=== PATIENT | female | born 1960 | race Caucasian/White ===

== ENCOUNTER 2018-09-25 06:07 | Day surgery (SDC) | payer OTHER ==
[2018-09-22 11:02] LABS: Absolute Lymphocytes (CBC) 1.6 K/uL (0.7-4.9); Absolute Monocytes 0.6 K/uL (0.1-1.3); Absolute Neutrophil 3.7 K/uL (1.8-8.0); Basophils % 0.4 % (0-1.3); Eosinophils % 2.3 % (0-4.4); Hematocrit 43.6 % (36.0-45.0); Lymphocytes % 25.7 % (15.3-44.8); Monocytes % 10.2 % (3.3-12.3)
[2018-09-22 11:03] LABS: Urine Appearance CLEAR; Urine Bilirubin NEGATIVE (NEG); Urine Blood NEGATIVE (NEG); Urine Color YELLOW; Urine Glucose NEGATIVE (NEG); Urine Protein NEGATIVE (NEG); Urine Specific Gravity <=1.005 (1.005-1.030); Urine Urobilinogen 0.2 mg/dL (0.2-1.0)
[2018-09-22 11:21] LABS: BUN Blood Urea Nitrogen 15 mg/dL (7-18); Bicarbonate 29 mmol/L (21-32); Glucose Level 86 mg/dL (74-106); Potassium 4.5 mmol/L (3.5-5.1); Sodium Level 140 mmol/L (136-145)
[2018-09-22 11:23] LABS: Urine Microscopic Reflex NO UMIC
[2018-09-25] MEDS ORDERED: Ringers Lactate 1,000 ML IV ONE ×3 (06:40→09:18)
[2018-09-25] MEDS ORDERED: LIDOCAINE 1% MPF 5 ML VIAL ONE (06:43)
[2018-09-25] MEDS ORDERED: FENTANYL CITR 250 MCG/5 ML ONE (07:13)
[2018-09-25] MEDS ORDERED: LIDOCAINE 2% MPF 5 ML VIAL ONE (07:13)
[2018-09-25] MEDS ORDERED: PROPOFOL 200 MG/20 ML VIAL IV ONE (07:13)
[2018-09-25] MEDS ORDERED: MIDAZOLAM HCL 2 MG/2 ML INJ ONE (07:13)
[2018-09-25] MEDS ORDERED: DEXAMETHASONE 4 MG/ML VIAL ONE (07:14)
[2018-09-25] MEDS ORDERED: ROCURONIUM 50 MG/5 ML VIAL IV ONE (07:14)
[2018-09-25] MEDS ORDERED: CEFAZOLIN/SWI 2gm 2 GM/20 ML SYR IV SCH (07:30)
[2018-09-25] MEDS ORDERED: CEFAZOLIN SODIUM 1 GM/VIAL ONE (07:30)
[2018-09-25] MEDS ORDERED: VASOPRESSIN 20 UNIT/ML VIAL ONE (07:30)
[2018-09-25] MEDS ORDERED: NA CHLORIDE 0.9% 100 ML IV ONE (07:30)
[2018-09-25] MEDS ORDERED: Ringers Lactate 1,000 ML IV SCH ×2 (07:30→11:00)
[2018-09-25] MEDS ORDERED: NS 0.9% VIAL 10 ML ONE (07:30)
[2018-09-25] MEDS ORDERED: EPHEDRINE SULF 50 MG/10 ML SYR ONE (08:20)
[2018-09-25] MEDS ORDERED: GLYCOPYRROLATE 0.2 MG/ML SYR ONE (08:40)
[2018-09-25] MEDS ORDERED: BUPIVACAINE 0.5% PF 10 ML VIAL ONE (09:09)
[2018-09-25] MEDS ORDERED: MORPHINE 4 MG/ML SYR IV PRN (10:59)
[2018-09-25] MEDS ORDERED: ONDANSETRON 4 MG/2 ML VIAL IV PRN (10:59)
[2018-09-25] MEDS ORDERED: PROMETHAZINE 25 MG/ML VIAL IV PRN (10:59)
--- NOTE | 2018-09-25 11:11 | P.BOP ---
Preoperative diagnosis: anterior and apical prolapse, rectocele, perineocele Postoperative diagnosis: same , apical enterocele Primary procedure: anterior repair with uphold augmentation, felix SSLF colpopexy , cysto Secondary procedure: rectocele perineocele repair [employer] Designer: Mignon Francisco Estimated blood loss: 100 Specimen: none Findings: 0/+2/+3/4/thin/7/0/-2/n/a Anesthesia: General Complications: None Drain(s): Urinary catheter Implants: uphold Transferred to: Recovery Room Condition: Good
[2018-09-25 11:24] VITALS: O2SAT 99
[2018-09-25 12:05] VITALS: BMI 18.6
[2018-09-25] MEDS: CEPACOL LOZENGES PO PRN ×2 (14:30→19:38)
[2018-09-25] MEDS ORDERED: ACETAMINOPHEN 500 MG TAB ONE (19:34)
[2018-09-25] MEDS: ACETAMINOPHEN 500 MG TAB PO PRN (19:39)
[2018-09-25] MEDS ORDERED: PANTOPRAZOLE 40MG TABLET PO ONE ×2 (20:50→21:26)
[2018-09-26] MEDS: ACETAMINOPHEN 500 MG TAB PO PRN ×2 (06:21→10:22)
[2018-09-26 07:16] LABS: Basophils % 0.1 % (0-1.3); Eosinophils % 0.3 % (0-4.4); Hematocrit 38.4 % (36.0-45.0); Lymphocytes % 11.5 % (15.3-44.8); MPV 8.2 fL (7.6-11.3); Monocytes % 11.4 % (3.3-12.3); RBC Red Blood Cell Count 4.09 M/uL (3.86-4.86)
[2018-09-26 11:14] VITALS: BP 145/61; TEMP 97.7
== END 2018-09-26 12:40 | disposition home or self-care (01) ==
LOC: OR 06:07 → 2ND-WC 11:15 → OR 09-26 12:40
PROVIDERS: ATTEND Obstetrics & Gynecology
PROC: 0JQC0ZZ Repair Pelvic Region Subcutaneous Tissue and Fascia, Open Approach (ICD-10-PCS; 2018-09-25)
PROC: 0WQNXZZ Repair Female Perineum, External Approach (ICD-10-PCS; 2018-09-25)
PROC: 0USG7ZZ Reposition Vagina, Via Natural or Artificial Opening (ICD-10-PCS; 2018-09-25)
PROC: 0JUC0JZ Supplement of Pelvic Region Subcutaneous Tissue and Fascia with Synthetic Substitute, Open Approach (ICD-10-PCS; principal; 2018-09-25 07:30)
DX: N99.3 Prolapse of vaginal vault after hysterectomy (principal); N81.81 Perineocele; N81.5 Vaginal enterocele; N95.2 Postmenopausal atrophic vaginitis; R39.14 Feeling of incomplete bladder emptying; I10 Essential (primary) hypertension; E03.9 Hypothyroidism, unspecified; H40.9 Unspecified glaucoma; Z79.899 Other long term (current) drug therapy; Z80.3 Family history of malignant neoplasm of breast; Z80.0 Family history of malignant neoplasm of digestive organs; Z83.3 Family history of diabetes mellitus; Z82.3 Family history of stroke; Z82.49 Family history of ischemic heart disease and other diseases of the circulatory system
CPT/HCPCS: 36415; 80048; 81003; 85025; 85610; 85730; 86850; 86900; 86901; J0690; J2250; J2405; J2550; J2704; J3010